=== PATIENT | male | born 1930 | race Caucasian/White ===

== ENCOUNTER 2017-11-09 10:53 | Inpatient (IN) | payer MEDICARE, BC ==
[~2017-11-09] VITALS: Ht 177.8 cm; Wt 63.6 kg
[~2017-11-09 10:53] MED LIST: ASPI1CPM6; ATOR40TA PO; ENAL10TA78 PO; ESOM40CA PO; KRIL1CAP GT; MULT-1179 PO; OXYC-145 PO; POLY119P2 PO; TEMA15CA5 PO
[2017-11-09] MEDS ORDERED: normal saline 1000ML IV soln IVB ONE (11:10)
[2017-11-09] MEDS ORDERED: azithromycin/NS 500mg/250ml 250 ML IV ONE (11:30)
[2017-11-09] MEDS ORDERED: piperacillin/tazo 3.375gm/50ml 50 ML IV SCH (11:30)
[2017-11-09] MEDS ORDERED: vancomycin/NS 1 GM ADD-VANTAGE 250 ML IV ONE (11:35)
[2017-11-09 11:51] LABS: BASOPHILS # (AUTO) 0.1 X10'3 (0-0.2); BASOPHILS % (AUTO) 0.8 % (0-1); EOSINOPHILS # (AUTO) 0.2 X10'3 (0-0.9); HEMATOCRIT 34.7 % (42.0-52.0); HEMOGLOBIN 11.9 g/dl (14.0-17.9); LYMPHOCYTES # (AUTO) 0.9 X10'3 (1.1-4.8); LYMPHOCYTES % (AUTO) 5.5 % (21-51); MEAN CORPUSCULAR HEMOGLOBIN 31.9 PG (27.0-31.0); MEAN CORPUSCULAR HGB CONC 34.2 % (33.0-36.5); MEAN CORPUSCULAR VOLUME 93.4 FL (78-98); MEAN PLATELET VOLUME 8.5 FL (7.4-10.4); MONOCYTES # (AUTO) 1.3 X10'3 (0-0.9); NEUTROPHILS % (AUTO) 84.7 % (42-75); PLATELET COUNT 394 X10'3 (140-440); RED BLOOD COUNT 3.71 X10'6 (4.70-6.10); RED CELL DISTRIBUTION WIDTH 12.6 % (11.5-14.5); WHITE BLOOD COUNT 16.5 X10'3 (4.5-11.0)
[2017-11-09 12:00] LABS: PARTIAL THROMBOPLASTIN TIME 34 SECONDS (22-32); PROTHROMBIN TIME 10.8 SECONDS (9.0-12.0)
[2017-11-09 12:16] LABS: ALANINE AMINOTRANSFERASE 34 U/L (12-78); ALBUMIN 2.2 G/DL (3.4-5.0); ALBUMIN/GLOBULIN RATIO 0.5 (1.1-1.5); ALKALINE PHOSPHATASE 104 IU/L (46-116); ANION GAP 13 (8-16); ASPARTATE AMINO TRANSFERASE 29 U/L (10-37); BILIRUBIN,TOTAL 0.5 MG/DL (0.1-1.0); BLOOD UREA NITROGEN 32 MG/DL (7-18); BUN/CREATININE RATIO 37.6 (5.4-32.0); CALCIUM 9.1 MG/DL (8.5-10.1); CHLORIDE 102 MMOL/L (99-107); CREATININE 0.85 MG/DL (0.60-1.10); GLUCOSE 130 MG/DL (70-104); MAGNESIUM 1.9 MG/DL (1.5-2.4); POTASSIUM 3.3 MMOL/L (3.5-5.1); SODIUM 140 MMOL/L (135-145); TOTAL CARBON DIOXIDE 25.5 MMOL/L (24-32); TOTAL PROTEIN 6.9 G/DL (6.4-8.2); eGFR 85 ML/MIN
[2017-11-09] MEDS ORDERED: albuterol 2.5 MG/3 ML nebule NEB ONE ×2 (12:20→14:05)
[2017-11-09] MEDS ORDERED: morphine 2 MG/ML inj. syringe IV ONE (13:20)
[2017-11-09] MEDS ORDERED: ondansetron/PF 4mg/2ml inj IV ONE (13:20)
[2017-11-09] MEDS ORDERED: albuterol 2.5 MG/3 ML nebule ONE (14:09)
[2017-11-09] MEDS ORDERED: mag hydrox/Alum hydrox/simeth 30ml oral suspension PO PRN (14:25)
[2017-11-09] MEDS ORDERED: ondansetron/PF 4mg/2ml inj IV PRN (14:25)
[2017-11-09] MEDS ORDERED: acetaminophen 325mg tablet PO PRN (14:25)
[2017-11-09] MEDS ORDERED: oxyCODONE/APAP 5-325mg tablet PO PRN (14:25)
[2017-11-09] MEDS ORDERED: morphine 10mg/ml inj. IV PRN (14:25)
[2017-11-09] MEDS ORDERED: magnesium hydroxide 30ml (MOM) UD suspension PO PRN (14:25)
[2017-11-09] MEDS ORDERED: ipratropium/albuterol 3ml nebule NEB PRN (14:25)
[2017-11-09] MEDS ORDERED: ENAL1TAB10 PO (16:01)
[2017-11-09] MEDS ORDERED: DOCU50LI24 GT (16:10)
[2017-11-09] MEDS ORDERED: CAT1P TD (16:10)
[2017-11-09] MEDS ORDERED: ASPI-1264 PO (16:10)
[2017-11-09] MEDS ORDERED: ALB0.5UD IH (16:10)
[2017-11-09] MEDS ORDERED: FERR300S GT (16:15)
[2017-11-09] MEDS ORDERED: MELA3TAB PO (16:20)
[2017-11-09] MEDS ORDERED: INSU100I8 SQ (16:20)
[2017-11-09] MEDS ORDERED: LIDO700A32 TOP (16:20)
[2017-11-09] MEDS ORDERED: POLY119P2 PO (16:20)
[2017-11-09] MEDS ORDERED: MULT9LIQ6 PO (16:22)
[2017-11-09] MEDS ORDERED: OXYC-580 GT (16:25)
[2017-11-09 16:26] LABS: CLARITY,URINE SLIGHTLY CLOUDY (Clear); COLOR,URINE YELLOW (Yellow); GLUCOSE, URINE NEGATIVE (Neg); KETONES,URINE NEGATIVE (Neg); LEUKOCYTE ESTERASE ,URINE NEGATIVE (Neg); NITRITES, URINE NEGATIVE (Neg); OCCULT BLOOD,URINE TRACE-INTACT (Neg); PROTEIN,URINE NEGATIVE (Neg); UROBILINOGEN,URINE 0.2 E.U/dL (0.2-1.0)
[2017-11-09 16:31] LABS: BACTERIA,URINE NONE SEEN /HPF (Neg); MUCUS STRANDS FEW /LPF (Neg); RBC,URINE NONE SEEN /HPF (0-2); SQUAMOUS EPITHELIAL CELL,UR NONE SEEN /LPF (FEW); UA COLLECTION TYPE STRAIGHT CATH; WBC,URINE NONE SEEN /HPF (0-4)
[2017-11-09 18:00] VITALS: BP 150/78
[2017-11-09] MEDS: aspirin/dipyridamole 25mg/200mg SR. capsule PO SCH (18:56)
[2017-11-09] MEDS: piperacillin/tazo 3.375gm/50ml 50 ML IV SCH (19:26)
[2017-11-09 21:55] LABS: ABG BASE EXCESS 1.6 mmol/L (-2.0-3.0); ABG OXYGEN SATURATION 94.2 % (95-98); ABG PCO2 (T) 46.1 mmHg (35.0-48.0); ABG PH (T) 7.386 (7.350-7.450); ABG PO2 (T) 75.9 mmHg (83-108); ALLEN'S TEST Positive; FCOHb 0.3 % (0.5-1.5); FMetHb 0.3 % (0.3-1.12); FO2Hb 93.6 % (94-100); RESPIRATORY RATE (OBSERVED) 18 b/min; TOTAL HEMOGLOBIN 11.6 G/dl (14.0-18.0)
[2017-11-10] MEDS: vancomycin/NS 1 GM ADD-VANTAGE 250 ML IV SCH ×2 (00:10→13:16)
[2017-11-10] MEDS: piperacillin/tazo 3.375gm/50ml 50 ML IV SCH ×4 (02:05→20:29)
[2017-11-10 05:30] VITALS: BP 140/76
[2017-11-10 07:00] VITALS: BP 145/65
[2017-11-10] MEDS: pantoprazole 40mg Tablet.DR PO SCH (07:30)
[2017-11-10] MEDS: OMEGA-3/DHA/EPA/FISH OIL 1 EACH CAPSULE.DR PO SCH (08:00)
[2017-11-10] MEDS: aspirin/dipyridamole 25mg/200mg SR. capsule PO SCH ×2 (08:00→19:01)
[2017-11-10] MEDS: multivitamins, therapeutics tablet PO SCH (08:00)
[2017-11-10] MEDS: atorvastatin 20mg tablet PO SCH (08:00)
[2017-11-10] MEDS: enoxaparin 40mg/0.4ml syringe SQ SCH (08:15)
[2017-11-10 18:00] VITALS: BP 108/56
[2017-11-10] MEDS: lactobacillus rhamnosus 10,000 MMU CELLS/CAPSULE PO SCH (19:01)
[2017-11-10] MEDS ORDERED: pantoprazole 40 MG vial IV ONE (23:40)
[2017-11-10] MEDS ORDERED: normal saline 1000ml 1,000 ML IV SCH (23:40)
[2017-11-11] MEDS: vancomycin/NS 1 GM ADD-VANTAGE 250 ML IV SCH (00:32)
[2017-11-11 01:51] LABS: BASOPHILS % (AUTO) 0.2 % (0-1); EOSINOPHILS # (AUTO) 0.1 X10'3 (0-0.9); EOSINOPHILS % (AUTO) 1.2 % (0-6); HEMOGLOBIN 8.2 g/dl (14.0-17.9); LYMPHOCYTES # (AUTO) 1.3 X10'3 (1.1-4.8); LYMPHOCYTES % (AUTO) 10.7 % (21-51); MEAN CORPUSCULAR HEMOGLOBIN 31.9 PG (27.0-31.0); MEAN CORPUSCULAR HGB CONC 34.3 % (33.0-36.5); MEAN PLATELET VOLUME 8.9 FL (7.4-10.4); MONOCYTES # (AUTO) 1.2 X10'3 (0-0.9); MONOCYTES % (AUTO) 9.7 % (2-12); NEUTROPHILS # (AUTO) 9.8 X10'3 (1.8-7.7); NEUTROPHILS % (AUTO) 78.2 % (42-75); PLATELET COUNT 368 X10'3 (140-440); RED BLOOD COUNT 2.58 X10'6 (4.70-6.10); RED CELL DISTRIBUTION WIDTH 12.4 % (11.5-14.5); WHITE BLOOD COUNT 12.5 X10'3 (4.5-11.0)
[2017-11-11] MEDS: piperacillin/tazo 3.375gm/50ml 50 ML IV SCH ×3 (03:46→13:47)
[2017-11-11] MEDS: pantoprazole 40mg Tablet.DR PO SCH (06:38)
[2017-11-11] MEDS: atorvastatin 20mg tablet PO SCH (06:39)
[2017-11-11] MEDS: aspirin/dipyridamole 25mg/200mg SR. capsule PO SCH (06:39)
[2017-11-11] MEDS: OMEGA-3/DHA/EPA/FISH OIL 1 EACH CAPSULE.DR PO SCH (06:39)
[2017-11-11] MEDS: lactobacillus rhamnosus 10,000 MMU CELLS/CAPSULE PO SCH (06:39)
[2017-11-11] MEDS: multivitamins, therapeutics tablet PO SCH (06:39)
[2017-11-11 06:51] VITALS: BP 143/49
[2017-11-11] MEDS: enoxaparin 40mg/0.4ml syringe SQ SCH (07:22)
[2017-11-11] MEDS ORDERED: morphine 4 MG/ML inj SYRINge IV PRN (08:30)
[2017-11-11] MEDS ORDERED: LORazepam 2 mg/ml vial IV PRN (08:40)
[2017-11-11] MEDS ORDERED: VANCOMYCIN LEVEL IV NR (12:30)
== END 2017-11-11 14:24 | disposition expired | DRG 871 ==
LOC: ER 10:54 → ED HOLD 15:13 → SUR 3N 16:29
PROVIDERS: ADMIT Legal Medicine; ATTEND Internal Medicine
PROC: 5A09357 Assistance with Respiratory Ventilation, Less than 24 Consecutive Hours, Continuous Positive Airway Pressure (ICD-10-PCS; principal; 2017-11-09)
DX: A41.9 Sepsis, unspecified organism (principal); J96.00 Acute respiratory failure, unspecified whether with hypoxia or hypercapnia; J69.0 Pneumonitis due to inhalation of food and vomit; I69.354 Hemiplegia and hemiparesis following cerebral infarction affecting left non-dominant side; K92.2 Gastrointestinal hemorrhage, unspecified; R65.20 Severe sepsis without septic shock; E78.5 Hyperlipidemia, unspecified; R13.10 Dysphagia, unspecified; G47.33 Obstructive sleep apnea (adult) (pediatric); I10 Essential (primary) hypertension; I25.10 Atherosclerotic heart disease of native coronary artery without angina pectoris; Z51.5 Encounter for palliative care; Z66 Do not resuscitate; F17.210 Nicotine dependence, cigarettes, uncomplicated; Z95.5 Presence of coronary angioplasty implant and graft; Z79.899 Other long term (current) drug therapy; Z79.82 Long term (current) use of aspirin
CPT/HCPCS: 36415; 36600; 71045; 80053; 81001; 82803; 83605; 83735; 83880; 84145; 85018; 85025; 85610; 85730; 87040; 87070; 87502; 87503; 93005; 94640; 94660; 94760; 96365; 99285; A4310; A4344; A6213; C9113; J0456; J1650; J2270; J2405; J2543; J3370; J7030